=== PATIENT | male | born 1960 | race Caucasian/White ===

== ENCOUNTER 2020-02-25 10:14 | Outpatient (CLI) | payer OTHER | END 2020-02-25 10:19 | disposition home or self-care (01) | LOC: RAD 10:14 | PROVIDERS: ATTEND Orthopaedic Surgery | DX: M25.562 Pain in left knee (principal) ==

== ENCOUNTER → 2020-03-24 11:58 | Outpatient (CLI) | payer OTHER | END | disposition home or self-care (01) | LOC: LAB 11:58 | PROVIDERS: ATTEND Orthopaedic Surgery | DX: M25.48 Effusion, other site (principal) ==